=== PATIENT | female | born 1990 | race Hispanic/Latino ===

== ENCOUNTER 2018-03-15 09:36 | Outpatient (CLI) | payer OTHER ==
--- NOTE | 2018-03-15 16:43 | BD ---
Exam: DEXA Bone Density 03/15/18 HISTORY: 27-year-old female with history of bone pain. Lumbar Spine: BMD (g/cm2) L1 0.828 T-Score: -1.5 L2 0.911 T-Score: -1.1 L3 0.894 T-Score: -1.7 L4 0.882 T-Score: -1.6 L1-L4 0.880 T-Score: -1.5 Evidence for osteopenia with increased risk for fracture. LEFT FEMUR: Femoral Neck: 0.638 T-Score: -1.9 Total Femur: 0.794 T-Score: -1.2 Evidence for osteopenia with increased risk for fracture. FRAX score: Major osteoporotic fracture of 2.3%. Hip fracture of 0.4%. POS: AC
== END 2018-03-15 09:37 | disposition home or self-care (01) ==
LOC: BICMAMMO 09:36
PROVIDERS: ATTEND Nurse Practitioner Women's Health
DX: M89.8X9 Other specified disorders of bone, unspecified site (principal); M85.89 Other specified disorders of bone density and structure, multiple sites
CPT/HCPCS: 77080

== ENCOUNTER 2019-06-15 11:07 | Day surgery (SDC) | payer OTHER ==
[2019-06-15 11:35] VITALS: BP 110/71; TEMP 99.8; BMI 24.5
[2019-06-15] MEDS ORDERED: hydrALAZINE 20 MG/ML VIAL SLOW IVP PRN (11:45)
--- NOTE | 2019-06-15 11:57 | PDOC.EVN ---
Event Note - Event Note Event Note: OBGYN 1200 At bedside See dictation We will do Amnisure, VP3, and nasal influenza swab (sick contact)
--- NOTE | 2019-06-15 12:11 | HP ---
The time of evaluation was 11:40, it is now 11:52. Location is triage and bed B. This is a patient of Dr. Martin. CHIEF COMPLAINT: The patient is here for greenish discharge, and child at home with the flu. The patient does not have the symptoms of the flu. HISTORY OF PRESENT ILLNESS: This is a 28-year-old, G4, P3, at 31 weeks, who has had all previous vaginal deliveries, who is here with vaginal discharge complaint. She denies leakage of fluid that appears like rupture of membranes, but she states that the discharge is greenish and slightly irritating. She states they can be copious at times. She has no vaginal bleeding. She has no contractions and she has good movement. She also states that her child at home has "the flu." She does not have signs of congestion, cough, fever, or chills. REVIEW OF SYSTEMS: Complete review of systems was checked and is otherwise negative unless specified in the HPI. PAST MEDICAL HISTORY: Negative. PAST SURGICAL HISTORY: Breast augmentation. ALLERGIES: NONE. SOCIAL HISTORY: Negative for alcohol, tobacco, or drug use. PHYSICAL EXAMINATION: VITAL SIGNS: The patient's blood pressure is 110/70, pulse is 84, respirations are 16, temperature is 99.8. GENERAL: She is in no acute distress. ABDOMEN: Soft and nontender. : Perineal inspection reveals no gross evidence of leakage of fluid or vaginal bleeding. PELVIC: Currently pending. After we collect a VPIII and AmniSure, we will perform a cervical exam. On monitor, the heart tones with an external Doppler are in the 130s to 140s with moderate variability for age. There is no evidence of contraction pattern on tocodynamometer. Interventions ordered; I have ordered a VPIII and an AmniSure. ASSESSMENT: This is a patient who is a multigravida at 31 weeks with a sick contact at home, who is not presenting for viral symptoms, but for vaginal discharge. There is no current clinical evidence of labor. PLAN: 1. VPIII sent. 2. AmniSure collected just to rule out presence of amniotic fluid. 3. Because of her exposure to influenza, we will give her Tamiflu 75 mg one p.o. daily x10 days in accordance to the CDC exposure prophylaxis guideline. 4. Cervical exam pending. Addendum: Exam by me after I collected the and VP3: CX closed/25%/-2. No evidence of ROM Job ID: [id number] [facility]
[2019-06-15 12:18] LABS: Amnisure Internal Control QC ACCEPTABLE (ACCEPTABLE)
[2019-06-15 12:23] LABS: Amnisure Test No Membranes Rupture (No Rupture)
--- NOTE | 2019-06-15 12:48 | PDOC.EVN ---
Event Note - Event Note Event Note: Amnisure negative
--- NOTE | 2019-06-15 13:29 | PDOC.EVN ---
Event Note - Event Note Event Note: VP3 negative Influenza pending...will follow up tomorrow with [facility] Influenza as outpatient for prevention
== END 2019-06-15 13:51 | disposition home or self-care (01) ==
LOC: ERS 11:07 → L&D/OP 11:07
PROVIDERS: ATTEND Obstetrics & Gynecology
DX: O99.89 Other specified diseases and conditions complicating pregnancy, childbirth and the puerperium (principal); N89.8 Other specified noninflammatory disorders of vagina; Z3A.31 31 weeks gestation of pregnancy
CPT/HCPCS: 84112; 87480; 87510; 87660; 87804; 99285

== ENCOUNTER 2019-07-15 10:00 | Day surgery (SDC) | payer OTHER ==
--- NOTE | 2019-07-15 10:42 | PDOC.LDHP ---
Labor and Delivery H&P HPI: 28 yo @35.2wks presents to L&D for an iron infusion. ROS: Denies ctx, LOF, VB, discharge, dysuria. Endorses good movement. Denies fevers chills Denies sob, cough Denies chest pain, palpitations Denies abdominal pain, n/v/d Current gestational age (weeks): 35 (35.2) Grav: 4 Para: 3 OB History Details: OB hx:genetic screen negative for this , no current problems in this ; 3 prior SVDs [employer] hx: hx of ovarian cysts b/l Current complications: other (anemia of ) Past Medical History: Vit D deficiency osteopenia Current medications: pre- vitamins, other (vit d) Previous surgical history: other (breast augmentation) Allergies/Adverse Reactions: Allergies Allergy/AdvReac Type Severity Reaction Status Date / Time No Known Allergies Allergy Verified 07/15/19 10:59 Social history: none - Physical Exam Vital signs reviewed and normal: yes General: NAD Heart: RRR Lungs: CTAB Abdomen: gravid Extremeties: no edema - OB Labs Blood type: O RH: positive Antibody Screen: negative HIV: negative RPR: negative HEPSAg: negative 1 hour GCT: unknown (70) Rubella: immune Additional Labs: yovani/chlamydia negative H/H: 10.1/29.9 on 05/26/2019 - Assessment 28 yo @35.2wks admitted for anemia of requiring iron infusion. - Plan -: -ordered iron infusion -will monitor 1-2 hours post infusion for reaction. Addendum - Attending - Attending Attestation Date/Time: 07/15/19 1112 I personally evaluated the patient and discussed the management with Dr. Ferris. I agree with the History, Examination, Assessment and Plan documented above.
[2019-07-15] MEDS ORDERED: hydrALAZINE 20 MG/ML VIAL SLOW IVP PRN (10:53)
[2019-07-15] MEDS ORDERED: Sodium Chloride 0.9% 1,000 ML IV SCH (11:00)
[2019-07-15] MEDS ORDERED: Acetaminophen 500 MG TAB PO PRN (11:06)
[2019-07-15] MEDS ORDERED: Iron Sucrose Complex 500 MG in Sodium Chloride 0.9% 250 ML 250 ML IVPB SCH (11:06)
[2019-07-15 11:10] VITALS: BMI 24.7
== END 2019-07-15 15:43 | disposition home health service (06) ==
LOC: L&D/OP 10:00
PROVIDERS: ATTEND Obstetrics & Gynecology
DX: O99.013 Anemia complicating pregnancy, third trimester (principal); D64.9 Anemia, unspecified; O99.283 Endocrine, nutritional and metabolic diseases complicating pregnancy, third trimester; E55.9 Vitamin D deficiency, unspecified; Z3A.35 35 weeks gestation of pregnancy; Z79.899 Other long term (current) drug therapy
CPT/HCPCS: 96361; 96365; 96366; 99282; J1756; J7050

== ENCOUNTER 2019-07-29 22:16 | Day surgery (SDC) | payer OTHER ==
[2019-07-29 22:56] VITALS: BMI 26.5
[2019-07-29] MEDS ORDERED: hydrALAZINE 20 MG/ML VIAL SLOW IVP PRN (23:15)
[2019-07-29] MEDS ORDERED: Acetaminophen 325 MG TAB PO PRN (23:15)
--- NOTE | 2019-07-29 23:26 | PDOC.FPROB ---
FMR OB H&P: Medications - Current Home Medications: Medication Instructions Recorded Confirmed Type Ferrous Sulfate [Iron] 325 mg PO DAILY 06/15/19 07/29/19 History Pnv No.103/Folic/Om3s/Fish Oil 1 each PO DAILY 06/15/19 07/29/19 History [ Gummies] Allergies/Adverse Reactions: Allergies Allergy/AdvReac Type Severity Reaction Status Date / Time No Known Allergies Allergy Verified 07/15/19 10:59 FMR OB H&P: A/P - Problem List (1) Current Visit: Yes Status: Acute Discussion: Date/Time: 07/29/19 7651 PCP: Mario HPI: patient at 37.2 wks come in for evaluation of low back pain and contractions. She states the pain has been going on all the day today but the back pain got worse tonight which prompted her to come in. The pain is worse with movement. She denies dysuria, fevers, chills, or sweats. She is also having contractions but she has not been timing how far apart they are. She thinks maybe q10-15 minutes. She affirms movement, denies gush of fluids, leakage, or bleeding. Denies LINDSEY, visual changes, SOB, or swelling. History: OB hx: 3 term PMH: Osteopenia PSH: breast augmentation Meds: PNV, Vit D, magnesium All: NKDA Soc Hx: denies smoking, alcohol, drugs Fam Hx: denies downs, congenital defects GBS: + Blood type:O+ REVIEW OF SYSTEMS: Gen: no fever, chills, or sweats Neuro: no numbness/tingling, no weakness, denies headache ENT: denies congestion Eyes: no visual changes Resp: denies cough, no production, no SOB, no wheeze Card: denies chest pain, no palpitations GI: denies nausea, vomiting, diarrhea : no dysuria, no hematuria MSK: see hpi Skin: no rash, no erythema Psych: denies hx anxiety/depression Vitals: T: 98.5 R: 18 BP: 103/64 P:67 at: 98% on RA PHYSICAL EXAMINATION: General: NAD, alert and oriented x3 HEENT: EOMI, normal sclera Neck: Supple. Full ROM. Heart/Cardiovascular System: RRR, Cap refill < 3 seconds, no rub, no murmur Lungs/Respiratory System: clear to auscultation bilaterally. No increased work of breathing. Room air. Abdomen/Gastro-Intestinal System: no abdominal tenderness, normal bowel sounds, Gravid Extremities: Warm extremities. No cyanosis or edema. Neuro: No gross deficits appreciated Psychiatry: Awake, Alert and cooperative with exam Skin: no lesions, no rashes Musculoskeletal: No CVA tenderness, SI joint tenderness bilaterally A/P: patient at 37.2 wks here for labor r/o FHT: 120 baseline, mod variability, no decels, accels present Munjor: irregular contractions # - 3//, unchanged after 2 hours - irregular contractions - back pain improved with tylenol - discharged home with labor precautions, patient in agreement with plan
[2019-07-30] MEDS ORDERED: Morphine 4 MG/ML VIAL IM SCH (01:15)
== END 2019-07-30 01:30 | disposition home or self-care (01) ==
LOC: L&D/OP 22:16
PROVIDERS: ATTEND Obstetrics & Gynecology
DX: O47.1 False labor at or after 37 completed weeks of gestation (principal); O99.89 Other specified diseases and conditions complicating pregnancy, childbirth and the puerperium; M54.5 Low back pain; Z3A.37 37 weeks gestation of pregnancy; Z79.899 Other long term (current) drug therapy
CPT/HCPCS: 96372; 99283; J2270

== ENCOUNTER 2019-08-17 06:20 | Inpatient (IN) | payer OTHER, SELFPAY ==
[2019-08-17] MEDS ORDERED: Carboprost 250 MCG/ML AMP IM PRN (06:30)
[2019-08-17] MEDS ORDERED: HYDROcodone/Acetaminophen 5/325 mg Tablet PO PRN (06:30)
[2019-08-17] MEDS ORDERED: NS / Oxytocin 40 units/1000ml 1,000 ML IV PRN (06:30)
[2019-08-17] MEDS ORDERED: Diphenoxylate HCl/Atropine Tablet PO PRN (06:30)
[2019-08-17] MEDS ORDERED: Lidocaine 1% (PF) 30 ML VIAL SC PRN (06:30)
[2019-08-17] MEDS ORDERED: Ibuprofen 800 MG TAB PO PRN (06:30)
[2019-08-17] MEDS ORDERED: Penicillin G Potassium 5 MILL.UNITS in Sodium Chloride 0.9% 100 ML IVPB SCH (06:30)
[2019-08-17] MEDS ORDERED: Ondansetron PF 4 MG/2 ML Vial IVP PRN ×2 (06:30→11:22)
[2019-08-17] MEDS ORDERED: NS w/ Oxytocin 10 units 500 ML IV SCH (06:30)
[2019-08-17] MEDS ORDERED: Butorphanol Tartrate 1 MG/ML VIAL SLOW IVP PRN (06:30)
[2019-08-17] MEDS ORDERED: hydrALAZINE 20 MG/ML VIAL SLOW IVP PRN ×2 (06:30→12:50)
[2019-08-17] MEDS ORDERED: Misoprostol 200 MCG TAB PR PRN (06:30)
[2019-08-17] MEDS ORDERED: Acetaminophen 500 MG TAB PO PRN (06:30)
[2019-08-17] MEDS ORDERED: Promethazine HCl 25 MG/ML VIAL IM PRN ×2 (06:30→11:22)
[2019-08-17 06:37] VITALS: BMI 26.5
[2019-08-17] MEDS: Lactated Ringer's 1,000 ML IV SCH ×2 (06:38→10:04)
[2019-08-17 07:35] LABS: Mean Corpuscular HGB CONC 33.8 g/dL (32.0-36.0); Mean Corpuscular Hemoglobin 29.3 pg (27.0-31.0); Mean Corpuscular Volume 86.9 fL (78.0-98.0); Mean Platelet Volume 8.9 fL (7.4-10.4); Platelet Count 158 thou/uL (130-400); RBC Distribution Width 16.8 % (11.5-14.5); White Blood Cell (WBC) Count 9.2 thou/uL (4.8-10.8)
[2019-08-17 08:13] LABS: HBSAg Index 0.16 S/CO (0-0.99); Hep B Surf Ag Non-Reactive S/CO (NonReactive); Syphilis Antibody Nonreactive (Nonreactive); Syphilis Antibody Index 0.06 S/CO (<1.00 Non-Reactive)
[2019-08-17] MEDS ORDERED: Fentanyl 4 mcg/Bup 0.1% Cadd 100 ML ONE (08:48)
[2019-08-17] MEDS ORDERED: Lidocaine 1% (PF) 30 ML VIAL ONE (10:20)
[2019-08-17] MEDS ORDERED: NS / Oxytocin 40 units/1000ml 1,000 ML ONE (10:20)
[2019-08-17] MEDS ORDERED: EPHEDRINE 25 MG/5 ML SYRINGE SLOW IVP PRN (11:22)
[2019-08-17] MEDS ORDERED: Naloxone HCl 0.4 mg/ml Vial IVP PRN ×2 (11:22)
[2019-08-17] MEDS ORDERED: Acetaminophen 325 MG TAB PO PRN (11:22)
[2019-08-17] MEDS ORDERED: Lactated Ringer's 500 ML IV PRN (11:22)
[2019-08-17] MEDS ORDERED: diphenhydrAMINE 50 MG/ML VIAL IVP PRN (11:22)
[2019-08-17] MEDS ORDERED: Fentanyl 4 mcg/Bupivacaine 0.1% Cassette 100 ML EPIDURAL SCH (11:30)
[2019-08-17] MEDS ORDERED: Communication Order-Pharmacy FS SCH (11:30)
[2019-08-17] MEDS ORDERED: Penicillin G 2.5 MILL.units 2.5 MILL.UNITS in Premix Bag 1 BAG IVPB SCH (12:00)
[2019-08-17] MEDS ORDERED: Benzocaine-Menthol 82.5 ML CAN TOP PRN (12:50)
[2019-08-17] MEDS ORDERED: Lanolin Ointment 7 GM TUBE TOP PRN (12:50)
[2019-08-17] MEDS ORDERED: Milk Of Magnesia 30 ML UDCUP PO PRN (12:50)
[2019-08-17] MEDS ORDERED: Preparation H Ointment 28 GM TUBE PR PRN (12:50)
[2019-08-17] MEDS ORDERED: Bisacodyl 10 MG SUPP PR PRN (12:50)
[2019-08-17] MEDS ORDERED: traMADol HCl 50 MG TAB PO PRN (12:50)
--- NOTE | 2019-08-17 12:50 | PDOC.OPDEL ---
OB Operative/Delivery Note Delivery Dr/Surgeon: Mario Pre-Delivery Diagnosis: elective induction Procedure/Post Delivery Dx: spontaneous vaginal delivery Weeks gestation: 40 Anesthesia: epidural - Findings A Sex: female - 1 min: 8 - 5 min: 9 - Additional Findings/Plan Placenta delivered: spontaneous Repaired Obstetrical Laceration: none Estimated blood loss: 150ml qbl Post delivery plan: routine recovery
[2019-08-17] MEDS ORDERED: NS / Oxytocin 40 units/1000ml 1,000 ML IV SCH (13:00)
[2019-08-17] MEDS: Ibuprofen 800 MG TAB PO SCH ×2 (17:43→21:12)
[2019-08-17] MEDS: Ferrous Sulfate 325 MG TAB PO SCH (17:43)
[2019-08-17] MEDS: Docusate Calcium (SURFAK) 240 MG CAP PO SCH (21:12)
[2019-08-18] MEDS: Ibuprofen 800 MG TAB PO SCH ×2 (04:52→13:46)
[2019-08-18] MEDS: Ferrous Sulfate 325 MG TAB PO SCH ×2 (08:58→15:30)
[2019-08-18] MEDS: Docusate Calcium (SURFAK) 240 MG CAP PO SCH (08:59)
[2019-08-18] MEDS ORDERED: Adacel (T-DAP) 0.5 ML SYRINGE IM ONE (09:00)
[2019-08-18] MEDS ORDERED: Prenatal Vitamin 1 TAB PO SCH (09:00)
[2019-08-18 11:40] VITALS: BP 105/61; TEMP 98.4
== END 2019-08-18 15:55 | disposition home or self-care (01) | DRG 807 ==
LOC: L&D 06:20 → EDSTATUS 10:59 → 3SW 15:38
PROVIDERS: ADMIT Obstetrics & Gynecology; ATTEND Obstetrics & Gynecology
PROC: 10E0XZZ Delivery of Products of Conception, External Approach (ICD-10-PCS; principal; 2019-08-17)
PROC: 10907ZC Drainage of Amniotic Fluid, Therapeutic from Products of Conception, Via Natural or Artificial Opening (ICD-10-PCS; 2019-08-17)
PROC: 3E033VJ Introduction of Other Hormone into Peripheral Vein, Percutaneous Approach (ICD-10-PCS; 2019-08-17)
PROC: 10E0XZZ Delivery of Products of Conception, External Approach (ICD-10-PCS; 2019-08-17)
DX: O99.824 Streptococcus B carrier state complicating childbirth (principal); Z37.0 Single live birth; Z3A.40 40 weeks gestation of pregnancy
CPT/HCPCS: 36415; 51702; 85027; 86780; 86850; 86900; 86901; 87340; J2001; J2540; J2590; J3490